=== PATIENT | male | born 1965 | race Hispanic/Latino ===

== ENCOUNTER 2021-02-03 06:25 | Emergency (ER) | payer SELFPAY ==
[~2021-02-03] VITALS: Ht 167.6 cm; Wt 82.1 kg
[2021-02-03] MEDS ORDERED: FAMOTIDINE 20 MG/2 ML VIAL IV STA (06:56)
[2021-02-03] MEDS ORDERED: ONDANSETRON HCL INJ 2MG/ML 2ML 2 MG/ML VIAL IV STA ×2 (06:56→08:57)
[2021-02-03] MEDS: SODIUM CHLORIDE 0.9% 1000ML 1,000 ML IV SCH ×2 (07:00→10:45)
[2021-02-03] MEDS ORDERED: PROMETHAZINE 25MG/ NS 50ML (IV) IV ONE (08:15)
[2021-02-03] MEDS ORDERED: PROMETHAZINE HCL (IM) 25 MG/ML VIAL IM ONE (08:17)
[2021-02-03] MEDS ORDERED: SODIUM CHLORIDE 0.9% 50ML 50 ML ONE (08:17)
[2021-02-03] MEDS ORDERED: INSULIN REGULAR, HUMAN 100 UNIT/1 ML SQ ONE (09:00)
[2021-02-03] MEDS ORDERED: ACETAMINOPHEN 325 MG TAB PO ONE (09:00)
[2021-02-03] MEDS ORDERED: INSULIN REGULAR, HUMAN 100 UNIT/1 ML ONE (09:04)
[2021-02-03] MEDS ORDERED: ACETAMINOPHEN 325 MG TAB ONE (09:04)
[2021-02-03] MEDS ORDERED: ONDANSETRON HCL 4 MG ORAL DISINTEGRATING TAB ONE (09:27)
[2021-02-03] MEDS ORDERED: ZOFRAN4 MG PO (10:05)
[2021-02-03] MEDS ORDERED: SODIUM CHLORIDE 0.9% 1000ML 1,000 ML IV STA (10:44)
[2021-02-03] MEDS ORDERED: SODIUM CHLORIDE 0.9% 1000ML 1,000 ML ONE (10:47)
== END 2021-02-03 11:42 | disposition home or self-care (01) ==
LOC: FSED 06:57
DX: E11.65 Type 2 diabetes mellitus with hyperglycemia (principal); R74.8 Abnormal levels of other serum enzymes; R11.10 Vomiting, unspecified; I10 Essential (primary) hypertension
CPT/HCPCS: 36415; 70450; 71045; 74176; 80048; 80076; 81003; 82553; 82948; 84484; 85025; 96374; 96376; 99284; J1817; J2405; J2550; J7030; Q0162